=== PATIENT | male | born 2000 | race Hispanic/Latino ===

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

== ENCOUNTER 2022-05-02 22:39 | Emergency (ER) | payer OTHER, SELFPAY ==
[2022-05-02] MEDS ORDERED: Lidocaine 1%/Epinephrine 1:100K 10 ML VIAL ONE (23:14)
[2022-05-03] MEDS ORDERED: Bacitracin 1 PK ONE (00:42)
== END 2022-05-03 00:52 | disposition home or self-care (01) ==
LOC: MADERS 22:39
DX: S41.112A Laceration without foreign body of left upper arm, initial encounter (principal); W20.8XXA Other cause of strike by thrown, projected or falling object, initial encounter; Y92.69 Other specified industrial and construction area as the place of occurrence of the external cause
CPT/HCPCS: 12004